=== PATIENT | female | born 2000 | race African-American/Black ===

== ENCOUNTER 2023-09-16 16:53 | Inpatient (IN) | payer BC ==
[2023-09-16] MEDS ORDERED: Sodium Chloride 0.9% 10 ML Syringe FLUSH PRN (17:36)
[2023-09-16] MEDS ORDERED: Methylergonovine 0.2 MG/1 ML Amp IM PRN (17:36)
[2023-09-16] MEDS ORDERED: Sodium Chloride 0.9% 2.5 ML Syringe FLUSH PRN (17:36)
[2023-09-16] MEDS ORDERED: Lidocaine 1% 50 ML MDV INJECT PRN (17:36)
[2023-09-16] MEDS ORDERED: Sodium Chloride 0.9% 20 ML SDV IV PRN (17:36)
[2023-09-16] MEDS ORDERED: Water For Irrigation,Sterile 1,000 ML Container IRR PRN (17:36)
[2023-09-16] MEDS ORDERED: Oxytocin/0.9 % Sodium Chloride 30 UNIT/500 ML BAG IV SCH (17:45)
[2023-09-16 18:23] LABS: HEMATOCRIT 37.4 % (37.0-47.0); HEMOGLOBIN 12.8 g/dL (12.0-16.0); MEAN CORPUSCULAR HEMOGLOBIN 29.1 pg (28.0-32.0); MEAN CORPUSCULAR HGB CONC 34.2 g/dL (32.0-36.0); MEAN PLATELET VOLUME 9.7 fL (9.4-12.3); PLATELET COUNT,PLT 190 K/uL (150-400); WHITE BLOOD CELL COUNT,WBC 6.79 K/uL (3.9-11.3)
[2023-09-16] MEDS: Ampicillin 2 GM in Sodium Chloride 0.9% 100 ML IV ONE (18:45)
[2023-09-16] MEDS: Misoprostol 25 MCG (1/4 of 100 MCG) Tab PO PRN (18:46)
[2023-09-16] MEDS: Misoprostol 25 MCG (1/4 of 100 MCG) Tab VAG PRN ×2 (18:46→23:25)
[2023-09-16 18:53] LABS: A/G RATIO 0.6 (0.9-1.6); ALBUMIN 2.3 g/dL (3.4-5.0); BILIRUBIN TOTAL 0.2 mg/dL (0.2-1.0); CARBON DIOXIDE,CO2 19.8 mmol/L (21.0-32.0); CREATININE 0.7 mg/dL (0.6-1.0); EST CRCL DRUG DOSING (CG) 120.51 mL/min; POTASSIUM,K 3.7 mmol/L (3.5-5.1); PROTEIN TOTAL,TP 5.9 g/dL (6.4-8.2); URIC ACID 4.4 mg/dL (2.6-7.2)
[2023-09-16] MEDS ORDERED: Labetalol 100 MG/20 ML MDV IVPUSH PRN (19:10)
[2023-09-16] MEDS ORDERED: Phenylephrine HCl In 0.9% NaCl 1 MG/10 ML Syringe IVPUSH PRN (19:44)
[2023-09-16] MEDS ORDERED: ePHEDrine 50 MG/ML SDV IVPUSH PRN ×2 (19:44)
[2023-09-16 20:06] LABS: APPEARANCE,URINE SLT CLOUDY; BILIRUBIN,URINE NEGATIVE (NEGATIVE); COLOR,URINE YELLOW; GLUCOSE,URINE NEGATIVE (NEGATIVE); KETONES,URINE NEGATIVE (NEGATIVE); LEUKOCYTE ESTERASE,URINE TRACE (NEGATIVE); NITRITE,URINE NEGATIVE (NEGATIVE); OCCULT BLOOD,URINE NEGATIVE (NEGATIVE); PH,URINE 6.5 (5.0-8.0); PROTEIN,URINE TRACE mg/dL (NEGATIVE)
[2023-09-16 20:38] LABS: CREATININE,URINE RAND 252.4 mg/dL; PROTEIN CREATININE RATIO,URINE 0.1; PROTEIN,URINE RANDOM 24.3 mg/dL (<11.9)
[2023-09-16] MEDS: Ampicillin 1 GM in Sodium Chloride 0.9% 50 ML IV SCH (22:53)
[2023-09-17] MEDS: Butorphanol 2 MG/ML SDV IVPUSH PRN (00:15)
[2023-09-17] MEDS: Lactated Ringers 1,000 ML IV SCH (02:01)
[2023-09-17] MEDS: Ropivacaine HCl/PF 400 MG in Premix Bag 1 BAG EPIDUR SCH (02:32)
[2023-09-17] MEDS ORDERED: dexmedeTOMIDine HCl 200 MCG/2 ML SDV ONE (02:37)
[2023-09-17] MEDS: Terbutaline 1 MG/ML SDV SUBCUT PRN (02:54)
[2023-09-17] MEDS: Ondansetron 4 MG/2 ML SDV IVPUSH PRN (06:31)
[2023-09-17] MEDS: Oxytocin/0.9 % Sodium Chloride 30 UNIT/500 ML BAG IV SCH ×2 (14:45→22:21)
[2023-09-17] MEDS ORDERED: Lanolin 100% Cream 7 GM Tube TOP PRN (15:59)
[2023-09-17] MEDS ORDERED: Sodium Chloride 0.9% 10 ML Syringe FLUSH PRN (16:02)
[2023-09-17] MEDS ORDERED: Sodium Chloride 0.9% 20 ML SDV IV PRN (16:02)
[2023-09-17] MEDS ORDERED: Magnesium Sulfate/Water 4 GM in Premix Bag 1 BAG IV ONE (16:02)
[2023-09-17] MEDS ORDERED: Labetalol 100 MG/20 ML MDV IVPUSH PRN (16:02)
[2023-09-17] MEDS ORDERED: Sodium Chloride 0.9% 2.5 ML Syringe FLUSH PRN (16:02)
[2023-09-17] MEDS: Acetaminophen 500 MG Tab PO PRN (16:28)
[2023-09-17] MEDS: Witch Hazel Medicated Pads 40/Jar TOP PRN (16:30)
[2023-09-17] MEDS: Benzocaine/Menthol 20%-0.5% Spray 78 GM Cannister TOP PRN (16:30)
[2023-09-17] MEDS: NIFEdipine 30 MG Tab.ER PO SCH (17:00)
[2023-09-17] MEDS: Ibuprofen 800 MG Tab PO PRN (17:21)
[2023-09-17 17:47] LABS: PH,UMBILICAL ARTERIAL 7.279 (7.18-7.38); PH,UMBILICAL VENOUS 7.359 (7.25-7.45)
[2023-09-17] MEDS ORDERED: Misoprostol 25 MCG (1/4 of 100 MCG) Tab RECTAL STA (21:51)
[2023-09-17] MEDS: Misoprostol 200 MCG Tab PO PRN (21:58)
[2023-09-17] MEDS ORDERED: Carboprost Tromethamine 250 MCG/1 mL Vial IM PRN (22:47)
[2023-09-17] MEDS ORDERED: Tranexamic Acid IN NACL,ISO-OS 1,000 MG in Premix Bag 1 BAG IV PRN (22:47)
[2023-09-17] MEDS ORDERED: Oxytocin 10 Units/1 ML SDV IM PRN (22:47)
[2023-09-17] MEDS: Carboprost Tromethamine 250 MCG/1 mL Vial IM PRN (22:54)
[2023-09-17] MEDS: Tranexamic Acid IN NACL,ISO-OS 1,000 MG in Premix Bag 1 BAG IV PRN (23:05)
[2023-09-17] MEDS: Loperamide 2 MG Cap ONE (23:10)
[2023-09-17 23:23] LABS: HEMATOCRIT 29.6 % (37.0-47.0); HEMOGLOBIN 9.9 g/dL (12.0-16.0); MEAN CORPUSCULAR HEMOGLOBIN 29.1 pg (28.0-32.0); MEAN CORPUSCULAR HGB CONC 33.4 g/dL (32.0-36.0); MEAN CORPUSCULAR VOLUME 87.1 fL (83.0-99.0); MEAN PLATELET VOLUME 9.2 fL (9.4-12.3); PLATELET COUNT,PLT 145 K/uL (150-400); WHITE BLOOD CELL COUNT,WBC 13.22 K/uL (3.9-11.3)
[2023-09-17] MEDS: Loperamide 2 MG Cap PO ONE (23:25)
[2023-09-17 23:54] LABS: A/G RATIO 0.6 (0.9-1.6); ALBUMIN 1.9 g/dL (3.4-5.0); BILIRUBIN TOTAL 0.3 mg/dL (0.2-1.0); CALCIUM 7.8 mg/dL (8.5-10.1); CARBON DIOXIDE,CO2 21.8 mmol/L (21.0-32.0); CREATININE 0.9 mg/dL (0.6-1.0); EST CRCL DRUG DOSING (CG) 93.73 mL/min; POTASSIUM,K 3.7 mmol/L (3.5-5.1); PROTEIN TOTAL,TP 5.1 g/dL (6.4-8.2)
[2023-09-18 00:14] LABS: INR 1.01 (0.86-1.11)
[2023-09-18 06:22] LABS: HEMATOCRIT 29.5 % (37.0-47.0); HEMOGLOBIN 9.9 g/dL (12.0-16.0); MEAN CORPUSCULAR HEMOGLOBIN 29.4 pg (28.0-32.0); MEAN CORPUSCULAR HGB CONC 33.6 g/dL (32.0-36.0); MEAN CORPUSCULAR VOLUME 87.5 fL (83.0-99.0); MEAN PLATELET VOLUME 9.5 fL (9.4-12.3); PLATELET COUNT,PLT 145 K/uL (150-400); RED BLOOD CELL COUNT 3.37 M/uL (4.10-5.30); WHITE BLOOD CELL COUNT,WBC 11.28 K/uL (3.9-11.3)
[2023-09-18 06:49] LABS: A/G RATIO 0.6 (0.9-1.6); ALBUMIN 1.9 g/dL (3.4-5.0); BILIRUBIN TOTAL 0.2 mg/dL (0.2-1.0); CARBON DIOXIDE,CO2 22.3 mmol/L (21.0-32.0); CREATININE 0.8 mg/dL (0.6-1.0); EST CRCL DRUG DOSING (CG) 105.45 mL/min; PROTEIN TOTAL,TP 5.3 g/dL (6.4-8.2)
[2023-09-18] MEDS: Sodium Ferric Gluconate Cmplex 125 MG in Sodium Chloride 0.9% 100 ML IV SCH (10:07)
[2023-09-19] MEDS: Docusate Sodium 100 MG Cap PO PRN (08:40)
== END 2023-09-19 14:28 | disposition home or self-care (01) | DRG 560 ==
LOC: MW.OBCHECK 16:53 → MW.NPGPWH 16:53 → MW.OB 17:26 → OBSVTOIN 17:36 → MW.OB 17:36 → MW.OBCHECK 17:36 → MW.OB 09-17 18:43
PROVIDERS: ADMIT Obstetrics & Gynecology; ATTEND Obstetrics & Gynecology
PROC: 10E0XZZ Delivery of Products of Conception, External Approach (ICD-10-PCS; principal; 2023-09-16)
PROC: 3E0DXGC Introduction of Other Therapeutic Substance into Mouth and Pharynx, External Approach (ICD-10-PCS; 2023-09-16)
PROC: 0HQ9XZZ Repair Perineum Skin, External Approach (ICD-10-PCS; 2023-09-16)
PROC: 3E0R3BZ Introduction of Anesthetic Agent into Spinal Canal, Percutaneous Approach (ICD-10-PCS; 2023-09-16)
PROC: 00HU33Z Insertion of Infusion Device into Spinal Canal, Percutaneous Approach (ICD-10-PCS; 2023-09-16)
PROC: 3E0334Z Introduction of Serum, Toxoid and Vaccine into Peripheral Vein, Percutaneous Approach (ICD-10-PCS; 2023-09-16)
PROC: 3E0P7VZ Introduction of Hormone into Female Reproductive, Via Natural or Artificial Opening (ICD-10-PCS; 2023-09-16)
PROC: 10907ZC Drainage of Amniotic Fluid, Therapeutic from Products of Conception, Via Natural or Artificial Opening (ICD-10-PCS; 2023-09-16)
DX: O99.214 Obesity complicating childbirth (principal); Z37.0 Single live birth; O99.824 Streptococcus B carrier state complicating childbirth; O70.0 First degree perineal laceration during delivery; O13.4 Gestational [pregnancy-induced] hypertension without significant proteinuria, complicating childbirth; O99.02 Anemia complicating childbirth; O26.893 Other specified pregnancy related conditions, third trimester; D62 Acute posthemorrhagic anemia; Z3A.39 39 weeks gestation of pregnancy; Z67.41 Type O blood, Rh negative; Z86.16 Personal history of COVID-19
CPT/HCPCS: 36415; 51702; 59025; 80053; 81003; 82570; 82803; 84156; 84550; 85027; 85384; 85460; 85610; 85730; 86592; 86850; 86900; 86901; 86920; A9270-GY; J0290; J0595; J2405; J2590; J2790; J2795; J2916; J3105; J3490; J7120

== ENCOUNTER 2024-05-28 19:52 | Emergency (ER) | payer BC ==
[2024-05-28] MEDS: Ketorolac 30 MG/ML SDV IVPUSH ONE (20:22)
[2024-05-28 20:25] LABS: BASOPHILS ABSOLUTE AUTO 0.02 K/uL (0.00-0.20); BASOPHILS PERCENT AUTO 0.3 % (0.0-1.0); EOSINOPHILS ABSOLUTE AUTO 0.03 K/uL (0.00-0.45); EOSINOPHILS PERCENT AUTO 0.4 % (0.0-6.0); HEMATOCRIT 39.1 % (37.0-47.0); HEMOGLOBIN 12.7 g/dL (12.0-16.0); IMMATURE GRAN ABSOLUTE AUTO 0.01 K/uL (0.00-0.05); IMMATURE GRAN PERCENT AUTO 0.1 % (0.0-0.4); LYMPHOCYTES ABSOLUTE AUTO 3.06 K/uL (1.00-4.80); MEAN CORPUSCULAR HEMOGLOBIN 27.3 pg (28.0-32.0); MEAN CORPUSCULAR HGB CONC 32.5 g/dL (32.0-36.0); MEAN CORPUSCULAR VOLUME 84.1 fL (83.0-99.0); MEAN PLATELET VOLUME 9.4 fL (9.4-12.3); MONOCYTES ABSOLUTE AUTO 0.45 K/uL (0.00-0.80); MONOCYTES PERCENT AUTO 6.6 % (0.0-8.0); NEUTROPHILS ABSOLUTE AUTO 3.23 K/uL (1.80-7.70); NEUTROPHILS PERCENT AUTO 47.6 % (41.0-71.0); PLATELET COUNT,PLT 230 K/uL (150-400); RED BLOOD CELL COUNT 4.65 M/uL (4.10-5.30)
[2024-05-28 20:52] LABS: A/G RATIO 0.9 (0.9-1.6); ALANINE AMINOTRANSFERASE,ALT 23 IU/L (14-63); ALBUMIN 3.6 g/dL (3.4-5.0); ALKALINE PHOSPHATASE 85 U/L (46-116); ASPARTATE AMNIOTRANSFERASE,AST 18 IU/L (15-37); BILIRUBIN TOTAL 0.3 mg/dL (0.2-1.0); BLOOD UREA NITROGEN,BUN 8 mg/dL (7.0-18.0); CALCIUM 8.7 mg/dL (8.5-10.1); CARBON DIOXIDE,CO2 25.1 mmol/L (21.0-32.0); CHLORIDE,CL 107 mmol/L (98-107); EST CRCL DRUG DOSING (CG) 83.63 mL/min; ESTIMATED GFR 80 mL/min (>60); GLUCOSE RANDOM 90 mg/dL (74-106); LIPASE 24 U/L (16-77); POTASSIUM,K 3.7 mmol/L (3.5-5.1); PROTEIN TOTAL,TP 7.4 g/dL (6.4-8.2); SODIUM,NA 143 mmol/L (136-145)
[2024-05-28] MEDS: Iopamidol 755 MG/ML 500 ML Multipack Bottle IVPUSH ONE (22:54)
== END 2024-05-29 00:04 | disposition home or self-care (01) ==
LOC: MW.ED 19:52
DX: R07.89 Other chest pain (principal)
CPT/HCPCS: 36415; 71045; 71275; 80048; 80076; 83690; 84484; 85025; 85379; 93005; 96374; 99285; J1885; Q9967